=== PATIENT | male | born 1980 | race Caucasian/White ===

== ENCOUNTER 2020-02-01 12:53 | Emergency (ER) | payer OTHER ==
[~2020-02-01] VITALS: Ht 170.2 cm; Wt 72.7 kg
[~2020-02-01 12:53] MED LIST: IBUP1TAB7 PO; NICO21DI3 TD; NICO21DI37 TD
--- NOTE | 2020-02-01 14:01 | REP ---
REASON: Pain after trauma. AP pelvis and two views of the right hip were obtained. AP PELVIS: A single AP view of the pelvis was performed. The hip joint spaces are symmetric and relatively well maintained. There is no acute fracture or destructive osseous lesion. RIGHT HIP: FINDINGS: The joint space is symmetric and relatively well maintained. There is no acute fracture or dislocation. Electronically Signed by Yong Emerson DO 02/01/2020 02:13 P
[2020-02-01] MEDS ORDERED: NAPR-837 PO (14:29)
[2020-02-01] MEDS ORDERED: NAPROXEN 250 MG TAB PO ONE (14:30)
[2020-02-01 14:31] VITALS: BP 134/79
== END 2020-02-01 14:37 | disposition home or self-care (01) ==
LOC: M ED 12:53
DX: M25.551 Pain in right hip (principal); M54.31 Sciatica, right side

== ENCOUNTER → 2020-02-07 | Outpatient (CLI) | payer OTHER ==
[~2020-02-07] MED LIST changes: +NAPR-837 PO; +NORC1TAB7 PO
== END ==
LOC: M LABSMTC 08:57
PROVIDERS: ATTEND Anesthesiology
DX: Z01.818 Encounter for other preprocedural examination (principal); Z11.59 Encounter for screening for other viral diseases
CPT/HCPCS: C8903; U0003

== ENCOUNTER 2020-02-10 06:04 | Day surgery (SDC) | payer OTHER ==
[~2020-02-10] VITALS: Ht 167.6 cm; Wt 70.7 kg
[~2020-02-10 06:04] MED LIST changes: +LIDOCAINE 1% MDV 20ML VIAL SQ PRN; +LR 1,000 ML IV ONE; -NORC1TAB7 PO
[2020-02-10] MEDS ORDERED: MIDAZOLAM INJ 2MG/2ML VIAL (J2250 PER 1MG) As Ordered ONE (06:51)
[2020-02-10] MEDS ORDERED: ePHEDrine SULFATE 25 MG/5 ML(5MG/ML) SYRINGE As Ordered ONE (06:52)
[2020-02-10] MEDS ORDERED: PHENYLephrine 500MCG 5ML (100MCG/ML) SYRINGE As Ordered ONE (06:52)
[2020-02-10] MEDS ORDERED: fentaNYL 250 MCG/5 ML INJECTION (J3010) As Ordered ONE (06:52)
[2020-02-10] MEDS ORDERED: KETOROLAC 60MG 2ML VIAL As Ordered ONE (06:53)
[2020-02-10] MEDS ORDERED: LIDOCAINE 2% 100MG/5ML SDV (FOR ANES.) As Ordered ONE (06:53)
[2020-02-10] MEDS ORDERED: dexameTHASONE 4 MG/ML 1ML VIAL (J1100 PER 1MG) As Ordered ONE (06:53)
[2020-02-10] MEDS ORDERED: ONDANSETRON 4MG/2ML VIAL As Ordered ONE (06:53)
[2020-02-10] MEDS ORDERED: SUGAMMADEX SODIUM 500 MG/5 ML VIAL (BRIDION) As Ordered ONE (06:53)
[2020-02-10] MEDS ORDERED: ROCURONIUM BROMIDE 50 MG/5 ML VIAL As Ordered ONE (06:53)
[2020-02-10] MEDS ORDERED: propofoL 200 MG/20 ML VIAL As Ordered ONE ×2 (06:53→08:12)
[2020-02-10] MEDS ORDERED: BUPIVACAINE HCL 0.25% 30ML VIAL As Ordered ONE (07:09)
[2020-02-10] MEDS ORDERED: ACETAMINOPHEN 1000MG 100ML IV BTL (OFIRMEV) (J0131 PER 10MG) As Ordered ONE (07:50)
[2020-02-10] MEDS ORDERED: ESMOLOL INJ 100MG/10ML VIAL As Ordered ONE (08:15)
[2020-02-10] MEDS ORDERED: NORC1TAB7 PO (09:16)
[2020-02-10] MEDS ORDERED: PERCOCET 5MG/325MG TAB As Ordered ONE (09:20)
[2020-02-10] MEDS: PERCOCET 5MG/325MG TAB PO PRN ×2 (09:22→09:53)
[2020-02-10] MEDS ORDERED: fentaNYL 100 MCG/2 ML INJECTION (J3010) IV PRN (09:30)
[2020-02-10] MEDS ORDERED: IBUPROFEN 600MG TAB PO PRN (09:30)
[2020-02-10] MEDS ORDERED: LR 1,000 ML IV SCH (09:30)
[2020-02-10] MEDS ORDERED: ONDANSETRON 4MG/2ML VIAL IV PRN (09:30)
[2020-02-10] MEDS ORDERED: NORCO, ANEXSIA 5/325MG TABLET (HYDROcodone/ACETAMINOPHEN) PO PRN (09:30)
[2020-02-10] MEDS ORDERED: ACETAMINOPHEN TAB 650MG DOSE (2X325MG) PO PRN (09:30)
[2020-02-10 11:03] VITALS: BP 128/70
--- NOTE | 2020-02-12 08:52 | RO ---
DATE OF PROCEDURE: 02/10/2020 PREPROCEDURE DIAGNOSIS: Left inguinal hernia. POSTPROCEDURE DIAGNOSIS: Direct left inguinal hernia. PROCEDURE: Robotic assisted laparoscopic left inguinal herniorrhaphy with mesh. The mesh utilized was a Bard 3DMax light mesh lot number [id number] And reference code [id number]. SURGEON: Dr. Ryan Khanna. SURVEYING OR SPATIAL SCIENCE TECHNICIAN: OLLIE Paige. Cheyenne's assistance was required for management of the robotic instruments, change of instruments, insertion and removal of devices and closure of the wounds. ANESTHESIA: General. INDICATION: The patient is a 39-year-old man who was noted to have a bulge in the left inguinal area. A reducible left inguinal hernia was confirmed and he is now for a robotic assisted hernia repair. DESCRIPTION OF PROCEDURE: The patient was brought to the operating room and placed on the table in a supine position. He was placed under general endotracheal anesthesia. The patient's abdomen was prepped and draped in a sterile fashion. 0.25% Marcaine was infiltrated at each of the trocar sites as needed. The initial incision was in the midline approximately 3-4 cm above the umbilicus. A small transverse incision was made and the Veress needle was inserted. After positive hanging drop test, the abdomen was inflated with carbon dioxide gas. An 8 mm robotic port was placed over a 5 mm scope and advanced through the abdominal wall without difficulty. Initial examination showed no evidence of trocar injury. The liver and gallbladder appeared normal. Visualized loops of the small and large bowel appeared normal. There was a definite hernia defect identified on the left and the right side appeared normal. Two additional 8 mm robotic ports were placed, one in the right upper quadrant and one in the left upper quadrant. The patient was tilted to an approximately 15-degree head-down position. The da Saud Xi robot was brought into position and the endoscope was inserted. Targeting took place in the pelvis. The additional robotic arms were docked. A Force Bipolar and an endoscopic cauterizing scissor were inserted. I then moved to the control consult to proceed with the surgery. Inspection revealed what appeared to be a direct hernia with a moderate sized defect medial to the inferior epigastric vessels. An arcuate incision was made in the peritoneum beginning at the medial umbilical ligament and extending laterally and inferiorly toward the anterior superior iliac spine. A preperitoneal space was developed by opening the tissues and peeling away the peritoneum. The hernia sac was inverted into the abdomen without significant difficulty. The spermatic cord structures were identified and preserved. An adequate space was created for placement of the mesh. A Bard 3DMax light mesh for the left hand side, size large, was inserted. This was placed in the preperitoneal space. A #2-0 [address] was used to place a single tacking suture at the medial extent of the mesh tacking this to the fascia. The mesh nicely covered the area of the inguinal floor. The peritoneal flap was then closed with a running suture of absorbable #2-0 V-Loc beginning laterally and moving medially. As the closure progressed, the patient was gradually returned to a 5-degree head-down position and the abdominal pressure was reduced to 6 mmHg. The closure was completed. Along the way, the hernia sac was folded up laterally and sutured over a small defect in the peritoneal coverage. This was accomplished with the remaining #2-0 Vicryl. The needles were all removed. Final inspection revealed a good closure of the peritoneum with complete coverage. The instruments were removed. The abdomen was deflated and the robot was undocked and removed. Cheyenne Jaquez then proceeded with closure of the incisions with subcuticular #4-0 Vicryl and Steri-Strips. Light dressings were applied. The patient tolerated the procedure well without apparent complication. He was awakened in the operating room, extubated, moved to the recovery room in stable condition. DOMINICK
== END 2020-02-10 11:40 | disposition home or self-care (01) ==
LOC: M SDC 06:04
PROVIDERS: ATTEND Surgery
DX: K40.90 Unilateral inguinal hernia, without obstruction or gangrene, not specified as recurrent (principal); R51 Headache
CPT/HCPCS: 49650; C1781; J0131; J1100; J1885; J2250; J2370; J2405; J3010

== ENCOUNTER 2024-09-22 12:20 | Emergency (ER) | payer OTHER ==
[~2024-09-22] VITALS: Ht 167.6 cm; Wt 67.3 kg
[~2024-09-22 12:20] MED LIST changes: -LIDOCAINE 1% MDV 20ML VIAL SQ PRN; -LR 1,000 ML IV ONE; +NORC1TAB7 PO
[2024-09-22] MEDS: ONDANSETRON 4MG ORAL DISINTEGRATING TAB PO ONE (15:55)
[2024-09-22] MEDS: IBUPROFEN 600MG TAB PO ONE (15:55)
[2024-09-22] MEDS: ACETAMINOPHEN 500 MG TAB PO ONE (15:56)
[2024-09-22] MEDS ORDERED: ONDA-282 PO (16:20)
[2024-09-22 16:22] VITALS: BP 149/95; TEMP 98.1; O2SAT 99
== END 2024-09-22 16:40 | disposition home or self-care (01) ==
LOC: M ED 12:20
DX: U07.1 COVID-19 (principal); R94.31 Abnormal electrocardiogram [ECG] [EKG]; Z87.891 Personal history of nicotine dependence; Z79.899 Other long term (current) drug therapy

== ENCOUNTER 2024-09-25 09:38 | Emergency (ER) | payer OTHER ==
[~2024-09-25] VITALS: Ht 167.6 cm; Wt 66.3 kg
[~2024-09-25 09:38] MED LIST changes: +ONDA-282 PO
[2024-09-25] MEDS: NS (Normal Saline) 0.9% 1,000 ML IV ONE (11:36)
[2024-09-25] MEDS: ONDANSETRON 4MG 2ML VIAL IV ONE (11:36)
[2024-09-25 11:43] LABS: BASO % 0.2 % (0.0-1.0); EOS % 0.2 % (0.0-3.0); HEMATOCRIT 47.9 % (42.0-52.0); HEMOGLOBIN 16.8 g/dl (13.5-17.5); LYMPH # 0.9 10^3/uL (1.5-5.0); LYMPH % 8.2 % (24.0-44.0); MEAN CORPUSCULAR HEMOGLOBIN 31.6 pg (27.0-33.0); MEAN CORPUSCULAR HGB CONC 35.1 g/dl (32.0-36.5); MEAN CORPUSCULAR VOLUME 90.2 fl (80.0-96.0); MONO # 0.5 10^3/uL (0.0-0.8); MONO % 4.4 % (2.0-8.0); NEUTROPHILS # 9.9 10^3/uL (1.5-8.5); NEUTROPHILS % 86.7 % (36.0-66.0); PLATELET COUNT, AUTOMATED 252 10^3/uL (150-450); RED BLOOD COUNT 5.31 10^6/uL (4.30-6.10); WHITE BLOOD COUNT 11.4 10^3/uL (4.0-10.0)
[2024-09-25 12:13] LABS: ALBUMIN 4.2 G/DL (3.2-5.2); ALKALINE PHOSPHATASE 61 U/L (40-129); ALT/SGPT < 9 U/L (7.0-40); AST/SGOT 16 U/L (<34); BILIRUBIN,DIRECT 0.3 MG/DL (<0.4); BILIRUBIN,TOTAL 1.2 MG/DL (0.3-1.2); BLOOD UREA NITROGEN 18 MG/DL (9-23); CALCIUM LEVEL 9.7 MG/DL (8.5-10.1); CARBON DIOXIDE LEVEL 27 MMOL/L (20-31); CHLORIDE LEVEL 106 MMOL/L (98-107); CREATININE FOR GFR 0.85 MG/DL (0.70-1.30); GLOMERULAR FILTRATION RATE > 60.0 (>60); GLUCOSE, FASTING 113 MG/DL (60-100); POTASSIUM SERUM 4.4 MMOL/L (3.5-5.1); SODIUM LEVEL 140 MMOL/L (136-145); TOTAL PROTEIN 7.3 G/DL (5.7-8.2)
[2024-09-25 12:16] LABS: PROLACTIN 3.93 NG/ML (2.1-17.7)
[2024-09-25 14:29] VITALS: BP 125/80; TEMP 98.4; O2SAT 98
== END 2024-09-25 15:02 | disposition home or self-care (01) ==
LOC: M ED 09:38
DX: U07.1 COVID-19 (principal); F17.210 Nicotine dependence, cigarettes, uncomplicated; Z79.899 Other long term (current) drug therapy
CPT/HCPCS: 36415; 71046; 80048; 80076; 83605; 84146; 85025; 87040; 87486; 87581; 87633; 87798; 96361; 96374; 99284; J2405

== ENCOUNTER 2024-09-30 21:21 | Emergency (ER) | payer OTHER ==
[~2024-09-30] VITALS: Ht 172.7 cm; Wt 68.2 kg
[2024-09-30 21:22] VITALS: BP 153/100; TEMP 97.7; O2SAT 98
== END 2024-10-01 00:46 | disposition left against medical advice (07) ==
LOC: M ED 21:21
DX: Z53.21 Procedure and treatment not carried out due to patient leaving prior to being seen by health care provider (principal)

== ENCOUNTER → 2024-10-30 | Outpatient (CLI) | payer OTHER ==
[~2024-10-30] MED LIST changes: +BARIUM SULFATE 700 MG TABLET (E-Z-DISK) As Ordered ONE; +E-Z-PAQUE 96% w/w SUSP 176GM BTL As Ordered ONE; +VARIBAR NECTAR 40% w/v 240ML SUSP BTL As Ordered ONE; +VARIBAR PUDDING 40% w/v 230ML TUBE As Ordered ONE
== END ==
LOC: M RAD 11:22
PROVIDERS: ATTEND Pediatrics
DX: R13.10 Dysphagia, unspecified (principal)

== ENCOUNTER → 2024-11-25 | Outpatient (REF) | payer OTHER ==
[~2024-11-25] MED LIST changes: -BARIUM SULFATE 700 MG TABLET (E-Z-DISK) As Ordered ONE; -E-Z-PAQUE 96% w/w SUSP 176GM BTL As Ordered ONE; -VARIBAR NECTAR 40% w/v 240ML SUSP BTL As Ordered ONE; -VARIBAR PUDDING 40% w/v 230ML TUBE As Ordered ONE
[2024-11-25 20:27] LABS: CHOLESTEROL RISK RATIO 4.04 (<5); HDL CHOLESTEROL 66.7 MG/DL (>40); LDL CHOLESTEROL 169.1 MG/DL (<100); NON-HDL-C 203.3 MG/DL
[2024-11-25 20:29] LABS: THYROID STIMULATING HORMONE 3.108 uIU/ML (0.55-4.78)
== END ==
LOC: M LAB REF 17:50
PROVIDERS: ATTEND Pediatrics
DX: E66.3 Overweight (principal); Z68.37 Body mass index [BMI] 37.0-37.9, adult

== ENCOUNTER → 2025-04-13 | Outpatient (REF) | payer OTHER ==
[2025-04-13 18:42] LABS: BASO # 0.0 10^3/uL (0.0-0.2); BASO % 0.4 % (0.0-1.0); EOS # 0.2 10^3/uL (0.0-0.5); EOS % 2.1 % (0.0-3.0); LYMPH # 1.4 10^3/uL (1.5-5.0); LYMPH % 17.7 % (24.0-44.0); MONO # 0.6 10^3/uL (0.0-0.8); MONO % 7.1 % (2.0-8.0); NEUTROPHILS # 5.6 10^3/uL (1.5-8.5); NEUTROPHILS % 72.1 % (36.0-66.0); PLATELET COUNT, AUTOMATED 271 10^3/uL (150-450)
[2025-04-13 18:47] LABS: ERYTHROCYTE SEDIMENTATION RATE 6 mm/hr (0-15)
[2025-04-13 18:51] LABS: C REACTIVE PROTEIN QUANTITATIV < 0.50 MG/DL (<1.0)
== END ==
LOC: M LAB REF 17:27
PROVIDERS: ATTEND Pediatrics
DX: M79.671 Pain in right foot (principal)

== ENCOUNTER → 2025-04-17 | Outpatient (CLI) | payer OTHER | LOC: M RAD 16:56 | PROVIDERS: ATTEND Pediatrics | DX: M79.671 Pain in right foot (principal) ==

== ENCOUNTER → 2025-06-17 | Outpatient (CLI) | payer OTHER | LOC: M RAD 10:24 | PROVIDERS: ATTEND Student in an Organized Health Care Education/Training Program | DX: M79.671 Pain in right foot (principal); S93.491A Sprain of other ligament of right ankle, initial encounter; S93.411A Sprain of calcaneofibular ligament of right ankle, initial encounter; M25.471 Effusion, right ankle; M77.51 Other enthesopathy of right foot and ankle; G57.61 Lesion of plantar nerve, right lower limb; X58.XXXA Exposure to other specified factors, initial encounter; Y92.9 Unspecified place or not applicable; Y93.9 Activity, unspecified; Y99.9 Unspecified external cause status ==

== ENCOUNTER → 2025-09-14 | Outpatient (CLI) | payer OTHER | LOC: M LAB 17:23 | PROVIDERS: ATTEND Physician Assistant | DX: J06.9 Acute upper respiratory infection, unspecified (principal) ==